=== PATIENT | male | born 1990 | race Caucasian/White ===

== ENCOUNTER 2019-01-27 16:48 | Emergency (ER) | payer OTHER ==
[2019-01-27] MEDS ORDERED: IBUPROFEN 600 MG TAB PO ONE (17:05)
--- NOTE | 2019-01-27 17:09 | EDPHY ---
General - History Smoking Status: Never smoked Time Seen by Provider: 01/27/19 16:57 Narrative: CLINICAL IMPRESSION: Right AC joint separation ASSESSMENT/PLAN: 28-year-old male visiting from [place] presents to the emergency department with acute right shoulder pain after falling while snowboarding today. Clinically, patient has an obvious AC joint separation, possibly grade to versus grade 3. X-rays confirm no underlying fracture or dislocation. He is neurovascularly intact. No open wounds. No midline neck pain. He was placed in a sling, provided copies of his x-rays to follow up with Orthopedics in his home state [facility] where he is returning in 2 days. Warning signs return to ED sooner outlined in discharge. DIFFERENTIAL DX: Differential includes but not limited to acute fracture, strain/sprain, joint dislocation, soft tissue contusion ED PROCEDURES: Procedure: Splint placement. A sling splint was applied to right arm by technical staff engineer, supervised by myself. After application of the splint I returned and re-examined the patient. The splint was adequately immobilizing the joint and distal to the splint the patient's circulation and sensation was intact. ED COURSE: 5:00 p.m.: Patient seen assessed by myself. Clinically patient appears to have a grade 3 AC separation. Requesting x-rays. Visiting from out of state. 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 Patient's friend is a folding machine operator and states he believes the patient has an AC separation. Patient reports no prior shoulder injury or surgery. No elbow wrist or hand pain. No paresthesias. No neck pain and he denies hitting his head or having loss of consciousness. No open wounds. 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 Neurological: No sensory loss or weakness. PHYSICAL EXAM: General Appearance: Alert, oriented, appropriate for age, cooperative, well hydrated, non-toxic appearing, hypertensive, appears uncomfortable, no hypoxia. Neurological: Alert and oriented x 3, normal sensation and strength of extremities Skin: Warm, dry, no rashes, no nodules on palpation. Musculoskeletal: Obvious deformity to right AC suggestive of grade 3 AC separation. Intact sensation to deltoid, door hanger strength 5/5 bilaterally, distal neurovascular exam intact. No reproducible proximal humerus, elbow wrist or hand pain. No midline neck pain. MEDICAL DECISION MAKING: Patient was seen independently. Secondary supervising physician at time of evaluation was Dr. Ardon . Diagnosis: Right AC separation . New, requires workup Summary: See assessment and plan for summary of ED visit Independent visualization of images, tracing, or specimens yes. Patient Progress: Stable for discharge. (Jayy Black) Medical Decision Making: I did not see this patient while he was in the emergency department. However his care is discussed with the PA while the patient is in the department. I agree with treatment plan and management (Gerson Ardon) - Diagnostics Imaging Results: Imaging Impressions Shoulder X-Ray 01/27/19 17:05 Impression: Grade 3 right acromioclavicular joint sprain. - Objective Vital Signs: Initial Vital Signs Temperature (C) 37.2 C 01/27/19 16:50 Heart Rate 85 01/27/19 16:50 Respiratory Rate 18 01/27/19 16:50 Blood Pressure 141/91 H 01/27/19 16:50 O2 Sat (%) 95 01/27/19 16:50 O2 Delivery Mode Room Air Allergies/Adverse Reactions: No Known Allergies Allergy (Unverified 01/27/19 16:50) Home Medications: Medication Instructions Recorded NK [No Known Home Meds] 01/27/19 Medications Given: Discontinued Medications Ibuprofen (Motrin) 600 mg PO EDNOW ONE Stop: 01/27/19 17:06 Last Admin: 01/27/19 17:08 Dose: 600 mg Departure - Departure Disposition: Home, Routine, Self-Care Clinical Impression: AC separation, type 3 Qualifiers: Encounter type: initial encounter Laterality: right Qualified Code(s): S43.101A - Unspecified dislocation of right acromioclavicular joint, initial encounter Condition: Good Instructions: Acromioclavicular Separation (ED) Additional Instructions: DISCHARGE INSTRUCTIONS FROM YOUR DOCTOR Thank you for visiting our emergency department today. You were treated by a physician technical staff assistant today and your case was reviewed with our ED Attending physician. Please keep in mind that discharge from the emergency department does not mean that there is nothing wrong - it simply means that we have not identified an emergency condition that requires further evaluation or treatment in the hospital. You should always plan to follow up with primary care for re- evaluation of your condition in the next 2-3 days. If you have been referred to a specialist, please call as soon as possible (today or tomorrow) to schedule your follow up appointment at the appropriate time. XRAYS OF YOUR SHOULDER CONFIRM A RIGHT AC SEPARATION. NO EVIDENCE OF SHOULDER DISLOCATION OR FRACTURE. A SLING WAS PROVIDED FOR COMFORT AND COPIES OF XRAYS WERE GIVEN ON A DISC. PLEASE MAKE AN APPOINTMENT WITH AN ORTHOPEDIC PROVIDER IN [place] WHEN YOU RETURN. RETURN TO AN ER SOONER FOR WORSENING OR SEVERE PAIN, LOSS OF SENSATION OR WEAKNESS TO THE RIGHT ARM, NECK PAIN OR ANY OTHER CONCERNS. People present with illnesses and injuries in different ways, and it is always possible that we have missed something. You may always return for re-evaluation if symptoms worsen or if they are not improving or if you develop new/different symptoms. Again, thank you for choosing our emergency department. We hope that you feel better. Referrals: William Calderon MD [Medical Doctor] - As per Instructions
[2019-01-27 17:50] VITALS: BP 133/99
== END 2019-01-27 17:50 | disposition home or self-care (01) ==
DX: S43.101A Unspecified dislocation of right acromioclavicular joint, initial encounter (principal); V00.311A Fall from snowboard, initial encounter; Y92.828 Other wilderness area as the place of occurrence of the external cause; Y93.23 Activity, snow (alpine) (downhill) skiing, snowboarding, sledding, tobogganing and snow tubing; Z90.89 Acquired absence of other organs